=== PATIENT | male | born 1975 | race Caucasian/White ===

== ENCOUNTER 2016-09-30 07:31 | Emergency (ER) | payer OTHER ==
[~2016-09-30] VITALS: Ht 175.3 cm; Wt 81.9 kg
[2016-09-30 08:20] LABS: BASOPHIL % 0.5 % (0-2); PLATELET COUNT 253 x10^3mcL (130-400); RED CELL DISTRIBUTION WIDTH 13.2 % (11.5-14.5)
[2016-09-30 08:31] LABS: CALCIUM 8.8 mg/dL (8.5-10.1); CARBON DIOXIDE 26.1 mmol/L (21-32); CHLORIDE SERUM 106 mmol/L (98-107); CREATININE SERUM 1.1 mg/dL (0.7-1.3); GFR1 > 60 mL/min; GLUCOSE SERUM 107 mg/dL (74-106); POTASSIUM SERUM 4.5 mmol/L (3.5-5.1); SODIUM SERUM 138 mmol/L (136-145)
[2016-09-30 08:35] LABS: ALBUMIN 3.6 g/dL (3.4-5.0); ALKALINE PHOSPHATASE 49 U/L (46-116); ALT/SGPT 35 U/L (16-63); AST/SGOT 20 U/L (15-37); BILIRUBIN TOTAL 0.33 mg/dL (0.20-1.00); HDL CHOLESTEROL 45 mg/dL (40-60); LIPASE 132 IU/L (73-393); TOTAL PROTEIN, SERUM 6.8 g/dL (6.4-8.2); TRIGLYCERIDES 167 mg/dL (<150)
[2016-09-30 08:37] LABS: CHOLESTEROL 223 mg/dL (<200)
[2016-09-30 08:51] LABS: T3 TOTAL 1.19 ng/mL
[2016-09-30 09:01] LABS: FREE T4 0.97 ng/dL (0.76-1.46); FREE THYROXINE INDEX 2.9 ug/dL (1.4-4.5); T4(THYROXINE) 8.9 ug/dL (4.7-13.3)
[2016-09-30 11:00] VITALS: BP 134/71
== END 2016-09-30 11:00 | disposition home or self-care (01) ==
LOC: ED 07:31
PROVIDERS: Specialist
DX: R07.89 Other chest pain (principal)
CPT/HCPCS: 83880; 84439; J1170; J1885; J2405; J3010; J7030; Q0092; Q9967

== ENCOUNTER 2019-01-19 09:01 | Inpatient (IN) | payer OTHER ==
[~2019-01-19] VITALS: Ht 177.8 cm; Wt 78.9 kg
[2019-01-19 09:26] VITALS: Ht 177.8 cm; Wt 78.9 kg
--- NOTE | 2019-01-19 09:33 | NUR ---
PT BROUGHT IN BY WITH C/O LEFT SIDED ABDOMINAL PAIN SINCE YESTERDAY. AT BEDSIDE PT IS AAOX4. RESPS E/U. SKIN IS PINK, WARM AND DRY. PERRLA. PT PLACED ON MONITOR. BED RAILS UP X1 FOR SAFETY. PT ORIENTED TO ROOM, USE OF CALL CORREA AND BED IN LOWEST POSITION. PT IS CALM AND COOPERATIVE. PT AMBULATED FROM LOBBY TO ED WITH STEADY GAIT. PT AWAITING MSE.
[2019-01-19 10:32] LABS: CARBON DIOXIDE 25.1 mmol/L (21-32); CHLORIDE SERUM 106 mmol/L (98-107); CREATININE SERUM 1.3 mg/dL (0.7-1.3); GFR1 > 60 mL/min; GLUCOSE SERUM 105 mg/dL (74-106); POTASSIUM SERUM 4.2 mmol/L (3.5-5.1); SODIUM SERUM 142 mmol/L (136-145)
[2019-01-19 10:36] LABS: ALBUMIN 3.7 g/dL (3.4-5.0); ALKALINE PHOSPHATASE 50 U/L (46-116); ALT/SGPT 19 U/L (16-63); AMYLASE 91 U/L (25-115); AST/SGOT 4 U/L (15-37); BILIRUBIN TOTAL 0.84 mg/dL (0.20-1.00); LIPASE 315 IU/L (73-393)
[2019-01-19 10:52] LABS: BASOPHIL % 0.3 % (0-2); PLATELET COUNT 270 x10^3mcL (130-400); RED CELL DISTRIBUTION WIDTH 13.4 % (11.5-14.5)
--- NOTE | 2019-01-19 11:25 | NUR ---
PT C/O ABDOMINAL PAIN RETURNING. DR. RUIZ MADE AWARE. SEE EMAR FOR NEW ORDERS.
--- NOTE | 2019-01-19 13:00 | NUR ---
CLEAR LIQUID LUNCH TRAY PROVIDED.
--- NOTE | 2019-01-19 13:14 | NUR ---
HAND-OFF REPORT TO JAMES ON MED SURG TO ASSUME CARE.
[2019-01-19 14:10] VITALS: BP 114/68
--- NOTE | 2019-01-19 14:19 | NUR ---
RECEIVED PT FROM ER, PT ADMIT FOR DIVERTICULITIS, PT IS A/O X4, VERBAL RESPONSIVE, ABLE TO TELL WHAT HE NEEDS. LUNG SOUND CLEAR BILATERAL, NO COUGH, NO SOB, PT DENY ANY CHEST PAIN OR DISCOMFORT, BOWEL SOUND PRESENT ALL 4 QUADRANTS, NO DISTENTION, C/O ABD PAIN AT LEFT LOWER QUADRANT, 8/10, TORADOL IVP WAS GIVEN. PEDAL PULSE PRESENT BOTH FEET, NO EDEMA, IV AT RIGHT AC, AND LEFT AC, NO LEAKING, NO INFILTRATION. ALL ADLS ASSIST, ALL NEED MET, CALL LIGHT IN REACH, WILL CONTINUE TO MONITOR.
--- NOTE | 2019-01-19 14:51 | NUR ---
RECEIVED REPORT FROM MANDIE RN, PATIENT RESTING IN BED, NO ACUTE DISTRESS NOTED. A/OX4 ABLE TO MAKE NEEDS KNOWN AND FOLLOW COMMANDS, DENIES HEADACHE OR DIZZINESS. DENIES CP. LUNGS CTA, NO RESP DISTRESS ON RA, BREATHING E/U. BOWEL SOUNDS ACTIVE, LAST BM THIS MORNING DIARRHEA, PATIENT REPORTS NO DIARRHEA AT THIS TIME, ABD SOFT, STATES PAIN 5/10 AFTER TORADOL IV AND TOLERABLE. DENIES N/V. PERIPHERAL PULSES PALPABLE, NO EDEMA. DENIES ISSUES VOIDING. SKIN INTACT. IV ACCESS SITES TO RAC AND LAC, SITES WNL. RAC IV RUNNING FLAGYL, INFUSING WELL. CALL LIGHT WITHIN REACH. PLAN OF CARE BOARD UPDATED. WILL CONT TO MONITOR.
[2019-01-19 17:37] VITALS: BP 106/66
--- NOTE | 2019-01-19 19:30 | NUR ---
RECEIVED PT FROM DAY SHIFT RN. PT IS ALERT AND ORIENTED X4 AND ABLE TO FOLLOW COMMANDS. PT CURRENTLY RESTING IN BED. DENIES PAIN AT THIS TIME. PT DENIES CHEST PAINA ND SHORTNESS OF BREATH ON ROOM AIR. NO USE OF ACCESSORY MUSCLES OR LABORED BREATHING ON ASSESSMENT. PT STATES THAT HE HAS NOT HAD AN EPISODE OF DIARRHEA RECENTLY. INSTRUCTED TO CALL IF EXPERIENCEING AN INCREASE IN ABD PAIN. THERE IS A RAC 18G IV THAT IS CLEAN DRY AND INTACT AT THIS TIME. SAFETY MEASURES ARE IN PLACE. BED IN LOWEST POSITION. CALL LIGHT WITHIN REACH. WILL CONTINUE TO MONITOR PT.
[2019-01-19 20:37] VITALS: BP 110/56
--- NOTE | 2019-01-20 02:19 | NUR ---
PT DENIES PAIN AT THIS TIME. DENIES SOB ON ROOM AIR. NO DISTRESS NOTED.
[2019-01-20 06:01] VITALS: BP 108/64
[2019-01-20 06:22] LABS: CALCIUM 8.4 mg/dL (8.5-10.1); CARBON DIOXIDE 26.8 mmol/L (21-32); CHLORIDE SERUM 107 mmol/L (98-107); CREATININE SERUM 1.2 mg/dL (0.7-1.3); GFR1 > 60 mL/min; GLUCOSE SERUM 99 mg/dL (74-106); POTASSIUM SERUM 3.7 mmol/L (3.5-5.1); SODIUM SERUM 143 mmol/L (136-145)
[2019-01-20 06:29] LABS: BASOPHIL % 0.3 % (0-2); PLATELET COUNT 220 x10^3mcL (130-400); RED CELL DISTRIBUTION WIDTH 13.4 % (11.5-14.5)
--- NOTE | 2019-01-20 07:38 | NUR ---
RECEIVED REPORT FROM [facility] NURSE, PATIENT ALERT AND ORIENTED. REPORTS SORENESS TO ABDOMEN, SOFT AND TENDER. BOWEL SOUNDS ACTIVE. STATES LAST BM THIS MORNING SMALL AMOUNT. PAIN TOLERABLE AT THIS TIME. DENIES N/V. IV SITE TO RAC WNL, NO REDNESS/SWELLING, INFUSING NS WELL. CALL LIGHT WITHIN REACH.
[2019-01-20 08:33] VITALS: BP 115/60
--- NOTE | 2019-01-20 08:49 | NUR ---
TOLERATED BREAKFAST CLEAR LIQUID WELL. REQUESTING TO SPEAK WITH ATTENDING AND IF HE CAN GO HOME TODAY "I'VE GOT A BIG JOB TO DO TONIGHT, AND IM FEELING BETTER". REBECA RAO MADE AWARE.
[2019-01-20 10:38] VITALS: BP 115/60
--- NOTE | 2019-01-20 11:23 | NUR ---
DISCHARGE INSTRUCTIONS GIVEN, PATIENT VERBALIZED UNDERSTANDING, IV DC'D CATH INTACT. ALL QUESTIONS/CONCERNS ADDRESSED. LEAVING UNIT, WHEELCHAIR REFUSED, ACCOMPANIED.
== END 2019-01-20 11:23 | disposition home or self-care (01) | DRG 392 ==
LOC: ED 09:01 → MU 12:26
PROVIDERS: Emergency Medicine; ADMIT Internal Medicine
DX: K57.32 Diverticulitis of large intestine without perforation or abscess without bleeding (principal); F41.9 Anxiety disorder, unspecified; D72.829 Elevated white blood cell count, unspecified; Z88.0 Allergy status to penicillin; Z79.899 Other long term (current) drug therapy
CPT/HCPCS: G0378; J1885; J1956; J2270; J2405; J3010; J3490; J7030